=== PATIENT | female | born 1980 | race African-American/Black ===

== ENCOUNTER 2022-07-13 14:19 | Emergency (ER) | payer SELFPAY ==
[2022-07-13 14:31] VITALS: BP 160/97; PULSE 70; RESP 20; TEMP 36.7; O2SAT 95
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
== END 2022-07-13 15:11 | disposition home or self-care (01) ==
PROVIDERS: Emergency Provider Emergency Medicine
DX: R10.2 Pelvic and perineal pain (principal)
CPT/HCPCS: 99281